=== PATIENT | male | born 1980 | race Caucasian/White ===

== ENCOUNTER 2022-06-08 08:13 | Emergency (ER) | payer OTHER, SELFPAY ==
--- NOTE | ~2022-06-08 | XR_ITS ---
EXAMINATION: XR finger 3rd RT min 2V DATE: 06/08/2022 08:39 INDICATION: Pain and swelling at the third proximal interphalangeal joint. TECHNIQUE: Dorsal palmar, lateral and 2 oblique views of the right third digit were obtained COMPARISON: None FINDINGS: Bone alignment is normal. Subtle oblique linear lucency projecting across the diaphysis of the right third middle phalanx and the dorsal palmar projection and across the dorsal cortex at the neck on the lateral projection suspicious for nondisplaced fracture. No other lesions suspicious for fracture id entified. Joint spaces are normal. There is soft tissue swelling about the third proximal interphalan geal joint. IMPRESSION: 1. Suspected nondisplaced fracture of the right third middle phalanx. Reviewed, dictated and finalized at location A.
[2022-06-08 08:24] VITALS: BP 140/93; PULSE 75; RESP 20; TEMP 36.9; O2SAT 99
--- NOTE | 2022-06-08 08:51 | ED.UPPEXIN ---
HPI - Extremity Injury (Upper) General Chief Complaint: Extremity Injury, Upper Stated Complaint: right finger injury Time Seen by Provider: 06/08/22 08:52 Source: patient, RN notes reviewed and old records reviewed Mode of arrival: ambulatory Limitations: no limitations History of Present Illness HPI narrative: 41-year-old male who presents to [facility] with complaints of injury to his right middle finger which occurred last evening when he got his finger got in the straps of his son's back back. Patient reports that he has now noted swelling and bruising to his right middle finger with pain and decreased mobility. Patient reports that he has been taking Ibuprofen and has iced his finger. He is right hand dominant. MD complaint: injury to: right and finger (middle) Onset (ago): day(s) (Last evening) Handedness: right Severity scale (1-10): 6 Treatments prior to arrival: cold therapy and NSAIDS Related Data Home Medications Medication Instructions Recorded Confirmed No Home Medications 06/08/22 06/08/22 Allergies Allergy/AdvReac Type Severity Reaction Status Date / Time No Known Allergies Allergy Verified 06/08/22 08:48 Review of Systems Review of Systems: CONSTITUTIONAL: Denies fever, chills, or sweats. EYES: Denies visual changes, redness, or discharge. ENT: Denies rhinorrhea, congestion, sore throat, or otalgia. CARDIOVASCULAR: Denies chest pain, palpitations, or edema. RESPIRATORY: Denies cough or dyspnea. GASTROINTESTINAL: Denies abdominal pain, nausea, vomiting, or diarrhea. GENITOURINARY: Denies dysuria or hematuria. SKIN: Denies rash or itching. MUSCULOSKELETAL: Denies back pain,positive for right middle finger joint pain, or myalgia. NEUROLOGIC: Denies headache, numbness, or weakness. PSYCHIATRIC: Denies anxiety or depression. All systems reviewed & are unremarkable except as noted in HPI and below PMFSH Social History Social History (Updated 06/09/22 @ 08:12 by Khushi Shearer NP) Smoking status: Never smoker Alcohol intake: current Alcohol use details: rare social Substance use: never Living arrangements: with family Gender identity (if verbalized by the patient): Male Comments At time of signature, agree with nursing past medical, surgical, social and family history. There is no relevant family history pertinent to the presenting complaint Exam Narrative: GENERAL: Well-appearing, well-nourished, and in no acute distress. HEAD: Normocephalic, atraumatic. EYES: PERRLA and EOMI. ENT: Nares clear, no rhinorrhea or epistaxis. Mucous membranes moist.TM's normal with good light reflex, throat pink with no swelling NECK: Supple. no lymphadenopathy CHEST: Clear to auscultation. No respiratory distress.SAO2 99% on room air HEART: Regular rate and rhythm. No murmur heard. Normal peripheral pulses. ABDOMEN: Soft, nontender, nondistended, normal active bowel sounds. EXTREMITIES: Normal range of motion. No edema.Exception noted to right middle finger with swelling ,bruising to middle region of right 3rd finger with increased pain with movement, brisk capillary refill of nail bed, right radial pulse strong quality. SKIN: Warm, dry, no rash. NEURO: No focal deficits. Alert and oriented x3. Course Course Emergency Course: Patient is aware of diagnosis, understands and agrees to treatment plan.? Anticipatory guidance given.? Patient agrees to follow-up as directed and is aware of reasons to seek care at the emergency department. Portions of this record may have been created with voice recognition software Level of Care: Express Care Visit Vital Signs Vital signs: Vital Signs Temperature 36.9 C 06/08/22 08:24 Pulse Rate 75 06/08/22 08:24 Respiratory Rate 20 06/08/22 08:24 Blood Pressure 140/93 H 06/08/22 08:24 Pulse Oximetry 99 06/08/22 08:24 Oxygen Delivery Room Air 06/08/22 08:24 Temperature 36.9 C 06/08/22 08:24 Pulse Rate 75 06/08/22 08:24 Respiratory Rate
== END 2022-06-08 09:55 | disposition home or self-care (01) ==
PROVIDERS: Emergency Provider Registered Nurse
DX: S62.622A Displaced fracture of middle phalanx of right middle finger, initial encounter for closed fracture (principal); X58.XXXA Exposure to other specified factors, initial encounter
CPT/HCPCS: 29130; 73140; 99214; G0463